=== PATIENT | male | born 1995 | race Hispanic/Latino ===

== ENCOUNTER 2019-02-25 11:23 | Emergency (ER) | payer BC, OTHER ==
[2019-02-25 11:44] VITALS: TEMP 98.5
--- NOTE | 2019-02-25 12:10 | RAD ---
EXAM DESCRIPTION: Knee,Right Complete CLINICAL HISTORY: 23 years Male, medial pain 24 hrs after trauma TECHNIQUE: 3 views of the right knee were performed. COMPARISON: None available. FINDINGS: The visualized bones appear well mineralized. No acute fracture or dislocation. No evidence of suprapatellar joint effusion. The soft tissues appear grossly unremarkable. IMPRESSION: No acute traumatic abnormality of the right knee radiographically. Electronically signed by: Barbara Murphy MD 02/25/2019 12:09 PM CDT
--- NOTE | 2019-02-25 12:20 | ED.PDOC ---
History of Present Illness - General Chief Complaint: Lower Extremity Injury Stated Complaint: right knee pain Time Seen by Provider: 02/25/19 11:51 Source: patient Exam Limitations: no limitations - History of Present Illness Initial Comments: The patient is a 23-year-old male presenting to the emergency room secondary to pain in hisht knee after a soccer injury yesterday. Pain is to the medial aspect. He has been ambulatory on it. No locking or popping. No loss of strength. He does have a bruise over the kneecap that is a few days older. Passive and active range of motion are preserved. He does appear to be neurovascularly intact. He does have very significant tenderness to palpation over the medial aspect of the knee as well as pain with eversion of the foot Timing/Duration: 24 hours Severity: moderate Improving Factors: immobilization Worsening Factors: movement Associated Symptoms: denies symptoms Allergies/Adverse Reactions: Allergies NO KNOWN ALLERGY Allergy (Unverified 05/04/14 16:44) Home Medications: Ambulatory Orders NK 02/25/19 Review of Systems - Review of Systems Constitutional: States: no symptoms reported EENTM: States: no symptoms reported Respiratory: States: no symptoms reported Cardiology: States: no symptoms reported Gastrointestinal/Abdominal: States: no symptoms reported Genitourinary: States: no symptoms reported Musculoskeletal: States: see HPI Skin: States: no symptoms reported Neurological: States: no symptoms reported Endocrine: States: no symptoms reported All other Systems: No Change from Baseline Past Medical History (General) - Patient Medical History Hx Stroke: No Hx Congestive Heart Failure: No Hx Diabetes: No Surgical History: no surgical history - Vaccination History Hx Tetanus, Diphtheria Vaccination: Yes Hx Influenza Vaccination: No Hx Pneumococcal Vaccination: No - Social History Hx Tobacco Use: No Family Medical History - Family History Mother Family History: No Known Living Status: Still Living Physical Exam - Physical Exam General Appearance: Alert, Comfortable, No apparent distress Eye Exam: bilateral normal Ears, Nose, Throat: hearing grossly normal Neck: full range of motion, supple Respiratory: no respiratory distress, no accessory muscle use Cardiovascular/Chest: normal peripheral pulses, no edema Peripheral Pulses: dorsalis pedis,right: 2+, dorsalis pedis,left: 2+ Rectal Exam: deferred Extremity: normal range of motion, no pedal edema, no calf tenderness, normal capillary refill, other - see history of present illness 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 He is going to be placed in a knee immobilizer and he needs to either use this or a hinged knee brace for the next 3-4 weeks to allow for healing. Motrin can be used for discomfort. ER warnings were given for any significant worsening. X-ray of the knee shows no bony abnormality. Departure - Departure Clinical Impression: Medial collateral ligament sprain of knee Qualifiers: Encounter type: initial encounter Laterality: right Qualified Code(s): S83.411A - Sprain of medial collateral ligament of right knee, initial encounter Disposition: Discharge to Home or Self Care Condition: Fair Departure Forms: ED Discharge - Pt. Copy, Patient Portal Self Enrollment Instructions: Ligament Injuries in the Knee (DC) Diet: regular diet Activity: no exercise Home Medications: Ambulatory Orders NK 02/25/19 Additional Instructions: the patient's 23-year-old male presenting with what appears to be a medial collateral ligament partial tear or strain. He is going to be placed in a knee immobilizer and he needs to either use this or a hinged knee brace for the next 3-4 weeks to allow for healing. Motrin can be used for discomfort. ER warnings were given for any significant worsening. X-ray of the knee shows no bony abnormality.
[2019-02-25 12:44] VITALS: BP 113/78; O2SAT 98
== END 2019-02-25 12:41 | disposition home or self-care (01) ==
LOC: ER 11:23
DX: S83.411A Sprain of medial collateral ligament of right knee, initial encounter (principal); X58.XXXA Exposure to other specified factors, initial encounter; Y92.9 Unspecified place or not applicable; Y93.66 Activity, soccer

== ENCOUNTER → 2020-02-07 | Outpatient (CLI) | payer BC | LOC: YCFC.O 16:12 | PROVIDERS: ATTEND Family Medicine | DX: Z20.828 Contact with and (suspected) exposure to other viral communicable diseases (principal) ==